=== PATIENT | female | born 1985 | race American Indian/Alaskan Native ===

== ENCOUNTER 2017-02-04 13:10 | Emergency (ER) | payer SELFPAY ==
--- NOTE | 2017-02-10 23:42 | ER ---
ADMIT: 02/04/2017 RM/LOC: ER [facility] MR#: [id number] [address] [id number] CHERI ALONSO [address] [place] [address] Emergency Room Report SEX: F AGE: 31 : 1985 DATE: 02/04/2017 TIME: 13:10. Please refer to my T-sheet for complete H and P. Briefly, patient is a 31-year-old who comes with chills, sore throat, vomiting, just not feeling well for 2 days. PHYSICAL EXAM: VITAL SIGNS: Here are stable. GENERAL: No acute distress. HEENT: She has a swollen pharynx with some exudates. NECK: Soft, supple. Anterior cervical adenopathy is noted. LUNGS: Clear. HEART: Regular. ABDOMEN: Soft. SKIN: No rash. EMERGENCY DEPARTMENT COURSE: Uneventful. ASSESSMENT: 1. Pharyngitis. 2. Nausea, vomiting x1. PLAN: Fluids, Tylenol. Return if worse. Vicks or honey [id number]. Amoxil 500 t.i.d. for 7 days. Kulwant Dan MD/ deloris JOB #: [id number] CC: Kulwant Dan MD, Attending Physician Sukhwinder Rodney MD, Family Physician
== END 2017-02-04 13:40 | disposition home or self-care (01) ==
LOC: ER 13:10
DX: J02.9 Acute pharyngitis, unspecified (principal); R11.2 Nausea with vomiting, unspecified